=== PATIENT | male | born 1990 | race Two or more races ===

== ENCOUNTER 2018-05-22 02:39 | Emergency (ER) | payer OTHER | END 2018-05-22 03:40 | disposition home or self-care (01) | LOC: FTE 02:39 | DX: H66.002 Acute suppurative otitis media without spontaneous rupture of ear drum, left ear (principal); J06.9 Acute upper respiratory infection, unspecified; H72.92 Unspecified perforation of tympanic membrane, left ear; Z87.891 Personal history of nicotine dependence | CPT/HCPCS: 99283; Z7502 ==